=== PATIENT | male | born 1950 | race Caucasian/White ===

== ENCOUNTER 2017-05-31 09:10 | Emergency (ER) | payer MEDICARE, OTHER ==
[2017-05-31 09:55] LABS: BASOPHILS 0.4 % (0-2); EOSINOPHILS 2.7 % (0-7); HEMATOCRIT 40.1 % (42.0-54.0); HEMOGLOBIN 14.3 g/dL (13.5-17.5); LYMPHOCYTES 19.2 % (15-50); MCH 33.6 pg (26.0-34.0); MCHC 35.7 g/dL (31.0-37.0); MCV 94.4 fL (80.0-100.0); MEAN PLATELET VOLUME 13.3 fL (7.4-10.4); MONOCYTES 10.3 % (2-11); NEUTROPHILS 67.4 % (40-80); PLATELET COUNT 203 10x3/uL (130-400); RBC 4.25 10x6/uL (4.20-6.10); RDW 12.6 % (11.5-14.5); WBC 4.8 10x3/uL (4.8-10.8)
[2017-05-31 10:13] LABS: INR 1.02 (0.85-1.17); PROTIME 13.3 SECONDS (11.6-15.0)
[2017-05-31 10:18] LABS: ALBUMIN 3.9 g/dL (3.4-5.0); ALKALINE PHOSPHATASE 57 U/L (46-116); ALT (SGPT) 37 U/L (10-68); BILIRUBIN - TOTAL 0.69 mg/dL (0.2-1.3); CALC OSMOLALITY 278 mosm/kg (275-300); CALCIUM 9.3 mg/dL (8.5-10.1); CARBON DIOXIDE 24.4 mmol/L (21.0-32.0); CHLORIDE - SERUM 103 mmol/L (98-107); CREATININE - SERUM 0.9 mg/dL (0.6-1.3); GLUCOSE 106 mg/dL (74-106); POTASSIUM - SERUM 4.3 mmol/L (3.5-5.1); PROTEIN - SERUM 7.5 g/dL (6.4-8.2); SODIUM 138 mmol/L (136-145); UREA NITROGEN 22 mg/dL (7-18); eGFR NON AFRICAN AMERICAN 90 mL/min (90-120)
== END 2017-05-31 11:50 | disposition home or self-care (01) ==
LOC: D.ER 09:10
PROVIDERS: Emergency Medicine
DX: K92.2 Gastrointestinal hemorrhage, unspecified (principal)

== ENCOUNTER 2019-08-15 15:40 | Inpatient (IN) | payer MEDICARE, OTHER ==
[~2019-08-15] VITALS: Ht 177.8 cm; Wt 93.6 kg
[2019-08-15] MEDS ORDERED: BAYER CHEWABLE81 MG PO (15:42)
[2019-08-15] MEDS ORDERED: LIPITOR20 MG PO (15:42)
[2019-08-15] MEDS ORDERED: COZAAR100 MG PO (15:43)
[2019-08-15] MEDS ORDERED: NORVASC5 MG PO (15:43)
[2019-08-15] MEDS ORDERED: MOBIC7.5 MG PO (15:43)
[2019-08-15] MEDS ORDERED: TIROSINT137 MCG PO (15:43)
[2019-08-15 15:57] VITALS: BP 124/92
[2019-08-15 15:58] LABS: BASOPHILS 0.4 % (0-2); EOSINOPHILS 1.6 % (0-7); HEMATOCRIT 37.8 % (42.0-54.0); HEMOGLOBIN 13.7 g/dL (13.5-17.5); IMMATURE GRANULOCYTES 0.1 % (0-5); LYMPHOCYTES 15.9 % (15-50); MCH 33.7 pg (26.0-34.0); MCHC 36.2 g/dL (31.0-37.0); MCV 92.9 fL (80.0-100.0); MEAN PLATELET VOLUME 8.8 fL (7.4-10.4); MONOCYTES 8.9 % (2-11); NEUTROPHILS 73.1 % (40-80); PLATELET COUNT 165 10x3/uL (130-400); RBC 4.07 10x6/uL (4.20-6.10); RDW 12.5 % (11.5-14.5); WBC 7.4 10x3/uL (4.8-10.8)
[2019-08-15 16:08] LABS: APTT 25.4 SECONDS (22.8-39.4); INR 0.99 (0.85-1.17); PROTIME 12.6 SECONDS (11.6-15.0)
[2019-08-15 16:29] LABS: ALBUMIN 3.7 g/dL (3.4-5.0); ALKALINE PHOSPHATASE 70 U/L (46-116); BILIRUBIN - TOTAL 0.38 mg/dL (0.2-1.3); CALC OSMOLALITY 283 mosm/kg (275-300); CALCIUM 8.9 mg/dL (8.5-10.1); CARBON DIOXIDE 27.5 mmol/L (21.0-32.0); CHLORIDE - SERUM 102 mmol/L (98-107); CKMB 2.2 U/L (0.0-3.6); CREATINE KINASE 215 UL (21-232); CREATININE - SERUM 1.3 mg/dL (0.6-1.3); GLUCOSE 138 mg/dL (74-106); MAGNESIUM - SERUM 1.8 mg/dL (1.8-2.4); POTASSIUM - SERUM 3.4 mmol/L (3.5-5.1); PROTEIN - SERUM 6.9 g/dL (6.4-8.2); SODIUM 138 mmol/L (136-145); TROPONIN-I < 0.017 ng/mL (0.000-0.060); UREA NITROGEN 28 mg/dL (7-18); eGFR NON AFRICAN AMERICAN 58 mL/min (90-120)
[2019-08-15 16:35] LABS: ALT (SGPT) 32 U/L (10-68)
[2019-08-15 16:37] VITALS: BP 106/70
[2019-08-15 17:23] VITALS: BP 102/72
[2019-08-15 17:56] VITALS: BP 112/76
--- NOTE | 2019-08-15 19:23 | NUR ---
ADMIT TO ROOM 2117 FROM ER. ALERT/ORIENTED. ACCOMPANIED BY FAMILY X 1. CURRENTLY Deb GARCIA APRN AT BEDSIDE SEEING PATIENT.
[2019-08-15 20:00] VITALS: BP 127/86
--- NOTE | 2019-08-15 20:00 | NUR ---
PT ARRIVED WITH CARDIZEM AT 20ML/HR. SPOKE WITH Deb GARCIA APN AND RATE REDUCED TO 15ML/HR AT THIS TIME. PER Deb GARCIA LINOLEUM LAYER HELPER, CANCEL ORDERED 1X DOSE OF ABT THAT CAME WITH PATIENT FROM THE ER.
[2019-08-16 00:08] VITALS: BP 118/72
[2019-08-16 00:50] VITALS: BP 118/72; Ht 177.8 cm; Wt 93.6 kg
--- NOTE | 2019-08-16 03:36 | NUR ---
SUDDEN DROP IN HEARTRATE TO 30. CHECKED ON PATIENT. ALERT/ORIENTED. APICAL RATE OF 51 WITH SOME IRREGULARITY. PER TELEMETRY, PT CONVERTED TO SB. RATE BOUNCING AROUND 40-50'S, TURNED OFF CARDIZEM DRIP AND WILL MONITOR. PT IS ALERT/ORIENTED. DENIES CHEST PAIN OR DISCOMFORT.
[2019-08-16 04:00] VITALS: BP 112/72
--- NOTE | 2019-08-16 04:05 | NUR ---
SB/47 PER TELEMETRY. PT RESTING. ASYMPTOMATIC. APICAL HEART RATE 44 X 1 MINUTE. MONITOR AND CPOC. CARDIZEM REMAINS OFF.
--- NOTE | 2019-08-16 05:31 | NUR ---
PER TELEMETRY SB 60. RESTING WITH NO DISTRESS.
[2019-08-16 06:03] LABS: BASOPHILS 0.4 % (0-2); EOSINOPHILS 3.5 % (0-7); HEMATOCRIT 36.7 % (42.0-54.0); HEMOGLOBIN 12.9 g/dL (13.5-17.5); IMMATURE GRANULOCYTES 0.2 % (0-5); LYMPHOCYTES 25.9 % (15-50); MCH 32.7 pg (26.0-34.0); MCHC 35.1 g/dL (31.0-37.0); MCV 93.1 fL (80.0-100.0); MEAN PLATELET VOLUME 9.3 fL (7.4-10.4); MONOCYTES 11.3 % (2-11); NEUTROPHILS 58.7 % (40-80); PLATELET COUNT 171 10x3/uL (130-400); RBC 3.94 10x6/uL (4.20-6.10); RDW 12.5 % (11.5-14.5)
[2019-08-16 06:11] LABS: WBC 4.9 10x3/uL (4.8-10.8)
[2019-08-16 06:38] LABS: ALBUMIN 3.2 g/dL (3.4-5.0); ALKALINE PHOSPHATASE 54 U/L (46-116); ALT (SGPT) 27 U/L (10-68); BILIRUBIN - TOTAL 0.63 mg/dL (0.2-1.3); CALCIUM 8.2 mg/dL (8.5-10.1); CHLORIDE - SERUM 109 mmol/L (98-107); GLUCOSE 100 mg/dL (74-106); MAGNESIUM - SERUM 1.8 mg/dL (1.8-2.4); POTASSIUM - SERUM 3.9 mmol/L (3.5-5.1); PROTEIN - SERUM 6.2 g/dL (6.4-8.2); SODIUM 144 mmol/L (136-145)
[2019-08-16 06:39] LABS: CALC OSMOLALITY 288 mosm/kg (275-300); CREATININE - SERUM 0.8 mg/dL (0.6-1.3); UREA NITROGEN 18 mg/dL (7-18); eGFR NON AFRICAN AMERICAN > 90 mL/min (90-120)
--- NOTE | 2019-08-16 06:42 | NUR ---
PT HAS REMAINED IN SB/SR FOR THE REMAINDER OF THE SHIFT. NO DISCOMFORT. CPOC.
--- NOTE | 2019-08-16 07:15 | NUR ---
RECEIVED PT SITTING IN CHAIR AAOX4 RESP UNLABORED SKIN DENIES ANY NEEDS OR DISCOMFORT AT THIS TIME
[2019-08-16 09:36] VITALS: BP 119/66
[2019-08-16] MEDS ORDERED: CARDIZEM30 MG PO (12:34)
--- NOTE | 2019-08-16 13:30 | NUR ---
REVIEWED DISCHARGE INSTRUCTIONS WITH PT STATES UNDERSTANDING COPY GIVEN DCD SALINE LOCK TO LFA WITH IV CATHETER INTACT SITE FREE OF REDNESS OR EDEMA PT DISCHARGED HOME LEFT UNIT WALKING ESCORTED BY STAFF TO ER ENTRANCE LEFT BY PRIVATE VEHICLE IN STABLE CONDITION WITH ALL PERSONAL BELONGINGS
--- NOTE | 2019-08-18 08:46 | MORECARE ---
CASE MANAGEMENT DISCHARGE SUMMARY PATIENT: OZZIE RUELAS UNIT: [id number] ADM DATE: 08/15/19 AGE: 68 : 52 SEX: M ROOM/BED: D.2117 AUTHOR: JORDY BROOKE PHYSICIAN: REFERRING PHYSICIAN: OLGA PRESCOTT MD DATE OF SERVICE: 08/18/19 Discharge Plan Patient Name: [facility]ZZIE RUELAS [facility] [facility] 1950 Planned Disposition: Home Anticipated Discharge Date: 08/16/19 Discharge Date: 08/16/2019 Expected LOS: 1 Initial Reviewer: [email or web address] Initial Review Date: 08/18/2019 Generated: 08/18/19 9:46 am Patient Name: OZZIE RUELAS Page [id number] at 0846 All edits/amendments must be made on the electronic document DICTATION DATE: 08/18/1945 COMPOSITION MIXER: BRIT 08/18/19 0846 RPT#: [id number] DC DATE:08/16/19 STATUS: DIS IN [facility] [address] [facility] [place] [id number] END OF REPORT
== END 2019-08-16 13:30 | disposition home or self-care (01) | DRG 309 ==
LOC: D.ER 15:40 → D.M2 17:40
PROVIDERS: Family Medicine; ADMIT Emergency Medicine; ATTEND Emergency Medicine
DX: I48.91 Unspecified atrial fibrillation (principal); N17.9 Acute kidney failure, unspecified; E03.9 Hypothyroidism, unspecified; I10 Essential (primary) hypertension; E87.6 Hypokalemia; E78.5 Hyperlipidemia, unspecified